=== PATIENT | female | born 1995 | race Hispanic/Latino ===

== ENCOUNTER 2019-06-01 15:01 | Emergency (ER) | payer SELFPAY ==
[2019-06-01] MEDS ORDERED: ACETAMINOPHEN EXTRA STRENGTH 500 MG TABLET ONE (15:33)
[2019-06-01] MEDS ORDERED: ONDANSETRON ODT 4 MG TAB ONE (15:55)
[2019-06-01 15:57] LABS: RAPID GROUP A STREP NEGATIVE (NEGATIVE)
== END 2019-06-01 16:31 | disposition home or self-care (01) ==
LOC: EDH 15:01
DX: B34.9 Viral infection, unspecified (principal); H66.93 Otitis media, unspecified, bilateral; Z90.49 Acquired absence of other specified parts of digestive tract
CPT/HCPCS: 71046; 87804; 87880